=== PATIENT | female | born 1990 | race Caucasian/White ===

== ENCOUNTER 2016-10-18 11:01 | Emergency (ER) | payer OTHER ==
--- NOTE | 2016-10-18 11:16 | EDM.PDOC ---
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 Past medical history: As per history of present illness and as reviewed below otherwise noncontributory. Surgical history: As per history of present illness and as reviewed below otherwise noncontributory. Social history: No reported history of drug or alcohol abuse. Family history: As per history of present illness and as reviewed below otherwise noncontributory. Physical exam: HEENT: Atraumatic, normocehpalic, pupils reactive, negative for conjunctival pallor or scleral icterus, mucous membranes moist, throat clear, neck supple, nontender, trachea midline. Lungs: Clear to auscultation, breath sounds equal bilaterally, chest non tender. Heart: S1S2, regular, negative for clicks, rubs, or JVD. Abdomen: Soft, nondistended, nontender. Negative for masses or hepatossplenmegaly. Negative for costovertebral tenderness. Pelvis: Stable nontender. Genitourinary: Deferred. Rectal: Deferred Extremities: Atraumatic, negative for cords or calf pain. Neurovascular unremarkable. Neuro: Awake, alert, oriented. Cranial nerves II through XII unremarkable. Cerebellum unremarkable. Motor and sensory unremarkable throughout. Exam nonfocal. Diagnostics: [] Therapeutics: [Benadryl 50 IM Zyrtec 10 mg by mouth] Impression: [Reaction to bee sting] Plan: [Home and rest Benadryl every 4 hours as needed by mouth 2 capsules for 50 mg Zyrtec 10 mg by mouth daily 2 weeks Definitive disposition and diagnosis as appropriate pending reevaluation and review of above. Onset: Today, Sudden Duration: Minutes:, Getting Worse Location: Reports: Lower Extremity, Left left foot Pain Score (Numeric/FACES): 5 - Related Data Allergies Allergy/AdvReac Type Severity Reaction Status Date / Time No Known Allergies Allergy Verified 03/09/16 12:48 Home Meds: Home Meds #103/Iron Fumarate/Fa [ ] 1 tab PO DAILY 10/18/16 [ History] Past Medical History - Past Health History Medical/Surgical History: Denies Medical/Surgical History Neurological History: Reports: Migraines Endocrine/Metabolic History: Reports: Other (See Below) Other Endocrine/Metabolic History: Pt states she has had episodes of hypoglycemia in the past. - Infectious Disease History Infectious Disease History: Reports: Chicken Pox Other Infectious Disease History: MONO - Past Surgical History HEENT Surgical History: Reports: Oral Surgery Social & Family History - Family History Family Medical History: Noncontributory - Tobacco Use Smoking Status *Q: Never Smoker Second Hand Smoke Exposure: No - Caffeine Use Caffeine Use: Reports: Soda - Recreational Drug Use Recreational Drug Use: No ED ROS GENERAL - Review of Systems Review Of Systems: ROS reveals no pertinent complaints other than HPI. ED EXAM, ANIMAL BITE - Physical Exam Exam: See Below (See dictation) Course - Vital Signs Last Recorded V/S: Last Vital Signs Temp Pulse 89 10/18/16 11:05 Resp 18 10/18/16 11:05 BP 112/85 10/18/16 11:05 Pulse Ox 98 10/18/16 11:05 - Orders/Labs/Meds Meds: Medications Discontinued Medications Generic Name Dose Route Start Last Admin Trade Name Jacobq PRN Reason Stop Dose Admin Cetirizine HCl 10 mg 10/18/16 11:25 10/18/16 11:36 Zyrtec PO 10/18/16 11:26 10 mg ONETIME ONE Administration Diphenhydramine HCl 50 mg 10/18/16 11:25 10/18/16 11:33 Benadryl IM 10/18/16 11:26 50 mg ONETIME ONE Administration Departure - Departure Time of Disposition: 12:15 Disposition: Home, Self-Care 01 Condition: Good Clinical Impression: Allergic reaction to bee sting - Discharge Information Instructions: Insect Bite, [id number] Forms: ED Department Discharge Additional Instructions: The following information is given to patients seen in the emergency department who are being discharged to home. This information is to outline your options for follow-up care. We provide all patients seen in our emergency department with a follow-up referral. The need for follow-up, as well as the timing and circumstances, are variable depending upon the specifics of your emergency department visit. If you don't have a primary care physician on staff, we will provide you with a referral. We always advise you to contact your personal physician following an emergency department visit to inform them of the circumstance of the visit and for follow-up with them and/or the need for any referrals to a consulting specialist. The emergency department will also refer you to a specialist when appropriate. This referral assures that you have the opportunity for followup care with a specialist. All of these measure are taken in an effort to provide you with optimal care, which includes your followup. Under all circumstances we always encourage you to contact your private physician who remains a resource for coordinating your care. When calling for followup care, please make the office aware that this follow-up is from your recent emergency room visit. If for any reason you are refused follow-up, please contact the [facility] emergency department at and asked to speak to the emergency department charge nurse. Benadryl 50 mg every 4 hours when necessary (2 capsules [id number] medication) Zyrtec 10 mg daily 2 weeks
[2016-10-18] MEDS ORDERED: diphenhydrAMINE 50 MG/ML SDV IM ONE (11:25)
[2016-10-18] MEDS ORDERED: Cetirizine 10 MG Tab PO ONE (11:25)
[2016-10-18 12:51] VITALS: BP 110/70
== END 2016-10-18 12:31 | disposition home or self-care (01) ==
LOC: MW.ED 11:01
DX: T63.441A Toxic effect of venom of bees, accidental (unintentional), initial encounter (principal)
CPT/HCPCS: 96372; 99282; A9270; J1200; 99283

== ENCOUNTER 2016-11-20 12:43 | Emergency (ER) | payer OTHER ==
[2016-11-20] MEDS ORDERED: diphenhydrAMINE 50 MG/ML SDV IM ONE (12:56)
[2016-11-20] MEDS ORDERED: methylPREDNISolone Sodium Succinate 125 MG/2 ML SDV IM ONE (12:56)
[2016-11-20] MEDS ORDERED: EPINEPHrine 1 MG/1 ML Amp SUBCUT ONE (12:57)
--- NOTE | 2016-11-20 13:00 | EDM.PDOC ---
ED HPI GENERAL MEDICAL PROBLEM - General Chief Complaint: Allergic Reaction Stated Complaint: STUNCK BY A BEE Time Seen by Provider: 11/20/16 12:56 - History of Present Illness INITIAL COMMENTS - FREE TEXT/NARRATIVE: HISTORY AND PHYSICAL: History of present illness: Patient 25-year-old white female presents status post bee sting to her right lower extremity she now presents with some tightness in her chest and throat and lightheadedness she denies any other concern Review of systems: As per history of present illness and below otherwise all systems reviewed and negative. Past medical history: As per history of present illness and as reviewed below otherwise noncontributory. Surgical history: As per history of present illness and as reviewed below otherwise noncontributory. Social history: No reported history of drug or alcohol abuse. Family history: As per history of present illness and as reviewed below otherwise noncontributory. Physical exam: HEENT: Atraumatic, normocephalic, pupils reactive, negative for conjunctival pallor or scleral icterus, mucous membranes moist, throat clear, neck supple, nontender, trachea midline. Lungs: Clear to auscultation, breath sounds equal bilaterally, chest nontender. Heart: S1S2, regular, negative for clicks, rubs, or JVD. Abdomen: Soft, nondistended, nontender. Negative for masses or hepatosplenomegaly. Negative for costovertebral tenderness. Pelvis: Stable nontender. Genitourinary: Deferred. Rectal: Deferred. Extremities: Patient has some localized erythema and tenderness of the right ankle where she was stung neurovascular exam CMS is unremarkable Neuro: Awake, alert, oriented. Cranial nerves II through XII unremarkable. Cerebellum unremarkable. Motor and sensory unremarkable throughout. Exam nonfocal. Diagnostics: None Therapeutics epinephrine 0.3 subcutaneous Solu-Medrol 25 mg IM Benadryl 50 mg IM Impression: #1 insect sting with allergic reaction Definitive disposition and diagnosis as appropriate pending reevaluation and review of above. Right Ankle Pain Score (Numeric/FACES): 8 - Related Data Allergies Allergy/AdvReac Type Severity Reaction Status Date / Time bee venom protein (honey bee) Allergy Airway Verified 11/20/16 12:51 Tightness Home Meds: Home Meds #103/Iron Fumarate/Fa [ ] 1 tab PO DAILY 10/18/16 [ History] Past Medical History - Past Health History Medical/Surgical History: Denies Medical/Surgical History Neurological History: Reports: Migraines Endocrine/Metabolic History: Reports: Other (See Below) Other Endocrine/Metabolic History: Pt states she has had episodes of hypoglycemia in the past. - Infectious Disease History Infectious Disease History: Reports: Chicken Pox Other Infectious Disease History: MONO - Past Surgical History HEENT Surgical History: Reports: Oral Surgery Social & Family History - Family History Family Medical History: Noncontributory - Tobacco Use Smoking Status *Q: Never Smoker Second Hand Smoke Exposure: No - Caffeine Use Caffeine Use: Reports: None - Recreational Drug Use Recreational Drug Use: No ED ROS ALLERGIC REACTION - Review of Systems Review Of Systems: ROS reveals no pertinent complaints other than HPI. ED EXAM GENERAL NO PERIP PULSE - Physical Exam Exam: See Below (See dictation) Course - Vital Signs Last Recorded V/S: Last Vital Signs Temp 36.7 C 11/20/16 12:45 Pulse 111 H 11/20/16 12:45 Resp 20 11/20/16 12:45 BP 115/62 11/20/16 12:45 Pulse Ox 97 11/20/16 12:45 - Orders/Labs/Meds Orders: Active Orders 24 hr Category Date Time Status EPINEPHrine [Adrenalin 1:1000] Med 11/20/16 14:00 Once 0.3 mg SUBCUT ONETIME ONE Medication Orders Epinephrine HCl (Adrenalin 1:1000) 0.3 mg SUBCUT ONETIME ONE Stop: 11/20/16 14:01 Meds: Medications Generic Name Dose Route Start Last Admin Trade Name Freq PRN Reason Stop Dose Admin Epinephrine HCl 0.3 mg 11/20/16 14:00 Adrenalin 1:1000 SUBCUT 11/20/16 14:01 ONETIME ONE Discontinued Medications Generic Name Dose Route Start Last Admin Trade Name Freq PRN Reason Stop Dose Admin Diphenhydramine HCl 50 mg 11/20/16 12:56 11/20/16 13:51 Benadryl IM 11/20/16 12:57 50 mg ONETIME ONE Administration Epinephrine HCl 0.3 mg 11/20/16 12:57 Adrenalin 1:1000 SUBCUT 11/20/16 12:58 ONETIME ONE Methylprednisolone Sodium Succinate 125 mg 11/20/16 12:56 11/20/16 13:53 Solu-Medrol IM 11/20/16 12:57 125 mg ONETIME ONE Administration Departure - Departure Time of Disposition: 14:00 Disposition: Home, Self-Care 01 Condition: Good Clinical Impression: Allergic reaction to bee sting - Discharge Information Additional Instructions: The following information is given to patients seen in the emergency department who are being discharged to home. This information is to outline your options for follow-up care. We provide all patients seen in our emergency department with a follow-up referral. The need for follow-up, as well as the timing and circumstances, are variable depending upon the specifics of your emergency department visit. If you don't have a primary care physician on staff, we will provide you with a referral. We always advise you to contact your personal physician following an emergency department visit to inform them of the circumstance of the visit and for follow-up with them and/or the need for any referrals to a consulting specialist. The emergency department will also refer you to a specialist when appropriate. This referral assures that you have the opportunity for followup care with a specialist. All of these measure are taken in an effort to provide you with optimal care, which includes your followup. Under all circumstances we always encourage you to contact your private physician who remains a resource for coordinating your care. When calling for followup care, please make the office aware that this follow-up is from your recent emergency room visit. If for any reason you are refused follow-up, please contact the [facility] emergency department at and asked to speak to the emergency department charge nurse. 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
[2016-11-20] MEDS ORDERED: EPINEPHrine 1 MG/ML SDV SUBCUT ONE (14:00)
[2016-11-21 07:57] VITALS: BP 107/69
== END 2016-11-20 14:34 | disposition home or self-care (01) ==
LOC: MW.ED 12:43
DX: O9A.219 Injury, poisoning and certain other consequences of external causes complicating pregnancy, unspecified trimester (principal); T63.441A Toxic effect of venom of bees, accidental (unintentional), initial encounter
CPT/HCPCS: 96372; 99283; J0171; J1200; J2930

== ENCOUNTER 2017-02-07 11:07 | Emergency (ER) | payer OTHER ==
--- NOTE | 2017-02-07 12:07 | EDM.PDOC ---
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 Past medical history: As per history of present illness and as reviewed below otherwise noncontributory. Surgical history: As per history of present illness and as reviewed below otherwise noncontributory. Social history: No reported history of drug or alcohol abuse. Family history: As per history of present illness and as reviewed below otherwise noncontributory. Physical exam: HEENT: Atraumatic, normocephalic, pupils reactive, negative for conjunctival pallor or scleral icterus, mucous membranes moist, throat clear, neck supple, nontender, trachea midline. Lungs: Clear to auscultation, breath sounds equal bilaterally, chest nontender. Heart: S1S2, regular, negative for clicks, rubs, or JVD. Abdomen: Soft, nondistended, nontender. Negative for masses or hepatosplenomegaly. Negative for costovertebral tenderness. Pelvis: Stable nontender. Genitourinary: Deferred. Rectal: Deferred. Extremities: Atraumatic, negative for cords or calf pain. Neurovascular unremarkable. Neuro: Awake, alert, oriented. Cranial nerves II through XII unremarkable. Cerebellum unremarkable. Motor and sensory unremarkable throughout. Exam nonfocal. Diagnostics: []No imaging required heart tones Therapeutics: []Rest ice Tylenol 48 hours then he may benefit Fluid hydration techniques discussed Macrobid 100 mg by mouth twice a day #14 no refill Impression: UTI []Muscle spasm specifically over infraspinatus 28 weeks with IUP under OB care no OB complaints today FHT 150"s Definitive disposition and diagnosis as appropriate pending reevaluation and review of above. Right Upper Back Pain Score (Numeric/FACES): 7 Right Middle Back Pain Score (Numeric/FACES): 7 - Related Data Allergies Allergy/AdvReac Type Severity Reaction Status Date / Time bee venom protein (honey bee) Allergy Airway Verified 02/07/17 11:42 Tightness Home Meds: Home Meds #103/Iron Fumarate/Fa [ ] 1 tab PO DAILY 10/18/16 [ History] Past Medical History - Past Health History Medical/Surgical History: Denies Medical/Surgical History Neurological History: Reports: Migraines Endocrine/Metabolic History: Reports: Other (See Below) Other Endocrine/Metabolic History: Pt states she has had episodes of hypoglycemia in the past. - Infectious Disease History Infectious Disease History: Reports: Chicken Pox Other Infectious Disease History: MONO - Past Surgical History HEENT Surgical History: Reports: Oral Surgery Social & Family History - Family History Family Medical History: Noncontributory - Tobacco Use Smoking Status *Q: Never Smoker Second Hand Smoke Exposure: No - Caffeine Use Caffeine Use: Reports: None - Recreational Drug Use Recreational Drug Use: No Review of Systems - Review of Systems Review Of Systems: ROS reveals no pertinent complaints other than HPI. ED EXAM, GENERAL - Physical Exam Exam: See Below Course - Vital Signs Last Recorded V/S: Last Vital Signs Temp 36.6 C 02/07/17 11:39 Pulse 105 H 02/07/17 11:39 Resp 18 02/07/17 11:39 BP 102/67 02/07/17 11:39 Pulse Ox 97 02/07/17 11:39 - Orders/Labs/Meds Orders: Active Orders 24 hr Category Date Time Status Heart Tones [ Heart Rate] [RC] Click to Edit Care 02/07/17 11:40 Active CULTURE URINE [RM] Stat Lab 02/07/17 12:55 Uncollected Labs: Laboratory Tests 02/07/17 Range/Units 12:35 Urine Color YELLOW Urine Appearance SLT CLOUDY Urine pH 6.5 (5.0-8.0) Ur Specific [place] 1.020 (1.001-1.035) Urine Protein NEGATIVE (NEGATIVE) mg/dL Urine Glucose (UA) NEGATIVE (NEGATIVE) mg/dL Urine Ketones NEGATIVE (NEGATIVE) mg/dL Urine Occult Blood NEGATIVE (NEGATIVE) Urine Nitrite NEGATIVE (NEGATIVE) Urine Bilirubin NEGATIVE (NEGATIVE) Urine Urobilinogen 0.2 (<2.0) EU/dL Ur Leukocyte Esterase LARGE (NEGATIVE) Urine RBC 0-2 (0-2/HPF) Urine WBC 15-18 (0-5/HPF) Ur Epithelial Cells FEW (NONE-FEW) Urine Bacteria 1+ H (NEGATIVE) Urine Mucus LIGHT (NONE-MOD) Departure - Departure Time of Disposition: 12:56 Disposition: Home, Self-Care 01 Condition: Good Clinical Impression: Muscle spasm, UTI (urinary tract infection) - Discharge Information Referrals: PCP,None [Primary Care Provider] - Forms: ED Department Discharge Additional Instructions: Medication as prescribed Rest ice Tylenol for muscle spasm Fluid hydration techniques as discussed Return if symptoms persist or worsen Follow-up with OB as scheduled sooner as needed The following information is given to patients seen in the emergency department who are being discharged to home. This information is to outline your options for follow-up care. We provide all patients seen in our emergency department with a follow-up referral. The need for follow-up, as well as the timing and circumstances, are variable depending upon the specifics of your emergency department visit. If you don't have a primary care physician on staff, we will provide you with a referral. We always advise you to contact your personal physician following an emergency department visit to inform them of the circumstance of the visit and for follow-up with them and/or the need for any referrals to a consulting specialist. The emergency department will also refer you to a specialist when appropriate. This referral assures that you have the opportunity for follow-up care with a specialist. All of these measure are taken in an effort to provide you with optimal care, which includes your follow-up. Under all circumstances we always encourage you to contact your private physician who remains a resource for coordinating your care. When calling for follow-up care, please make the office aware that this follow-up is from your recent emergency room visit. If for any reason you are refused follow-up, please contact the [facility] emergency department at and asked to speak to the emergency department charge nurse. - My Orders Last 24 Hours: My Active Orders 02/07/17 11:40 Heart Tones [ Heart Rate] [RC] Click to Edit 02/07/17 12:55 CULTURE URINE [RM] Stat - Assessment/Plan Last 24 Hours: My Active Orders 02/07/17 11:40 Heart Tones [ Heart Rate] [RC] Click to Edit 02/07/17 12:55 CULTURE URINE [RM] Stat
[2017-02-07 14:11] VITALS: BP 108/70
== END 2017-02-07 13:12 | disposition home or self-care (01) ==
LOC: MW.ED 11:07
DX: O99.89 Other specified diseases and conditions complicating pregnancy, childbirth and the puerperium (principal); M62.838 Other muscle spasm; O23.43 Unspecified infection of urinary tract in pregnancy, third trimester; Z3A.28 28 weeks gestation of pregnancy
CPT/HCPCS: 81001; 99282; 99283

== ENCOUNTER 2017-04-07 17:33 | Observation (INO) | payer OTHER | END 2017-04-07 18:54 | disposition home or self-care (01) | LOC: MW.OBCHECK 17:33 → MW.OB 17:38 → MW.OBCHECK 18:09 | PROVIDERS: ADMIT Obstetrics & Gynecology; ATTEND Obstetrics & Gynecology | DX: O99.89 Other specified diseases and conditions complicating pregnancy, childbirth and the puerperium (principal) | CPT/HCPCS: 59025; 81003; G0378 ==

== ENCOUNTER 2017-05-04 20:27 | Inpatient (IN) | payer OTHER ==
[2017-05-04] MEDS ORDERED: Methylergonovine 0.2 MG/1 ML Amp IM PRN (22:08)
[2017-05-04] MEDS ORDERED: Misoprostol 200 MCG Tab PO PRN (22:08)
[2017-05-04] MEDS ORDERED: Lidocaine 1% 50 ML MDV INJECT PRN (22:08)
[2017-05-04] MEDS ORDERED: Terbutaline 1 MG/ML SDV SUBCUT PRN (22:08)
[2017-05-04] MEDS ORDERED: Butorphanol 1 MG/ML SDV IVPUSH PRN (22:08)
[2017-05-04] MEDS ORDERED: Water For Irrigation,Sterile 1,000 ML Container IRR PRN (22:08)
[2017-05-04] MEDS ORDERED: Oxytocin/0.9 % Sodium Chloride 30 UNIT/500 ML BAG IV SCH ×2 (22:15→22:30)
[2017-05-04] MEDS ORDERED: Sodium Chloride 0.9% 10 ML Syringe FLUSH PRN (22:23)
[2017-05-04] MEDS ORDERED: Sodium Chloride 0.9% 2.5 ML Syringe FLUSH PRN (22:23)
[2017-05-04] MEDS: Lactated Ringers 1,000 ML IV SCH (22:46)
[2017-05-04] MEDS: Nalbuphine 10 MG/1 ML Vial IVPUSH PRN (23:21)
[2017-05-05] MEDS: Nalbuphine 10 MG/1 ML Vial IVPUSH PRN ×2 (01:20→03:31)
[2017-05-05] MEDS: Lactated Ringers 1,000 ML IV SCH (07:43)
[2017-05-05] MEDS ORDERED: Ropivacaine 0.2% 2 MG/ML 20 ML SDV ONE (07:47)
--- NOTE | 2017-05-05 08:16 | PCM.PREANE ---
Preanesthetic Assessment - Anesthesia/Transfusion/Family Hx Anesthesia History: Prior Anesthesia Without Reaction Family History of Anesthesia Reaction: No Transfusion History: No Prior Transfusion(s) - Review of Systems Other: Reports: None - Physical Assessment Height: 5 ft 4 in Weight: 87.997 kg ASA Class: 2 Mental Status: Alert & Oriented x3 Airway Class: Mallampati = 1 Dentition: Reports: Normal Dentition Thyro-Mental Finger Breadths: 3 Mouth Opening Finger Breadths: 3 ROM/Head Extension: Full - Lab Values: Laboratory Last Values WBC 13.30 K/uL (4.0-11.0) H 05/04/17 22:40 RBC 4.33 M/uL (4.30-5.90) 05/04/17 22:40 Hgb 13.1 g/dL (12.0-16.0) 05/04/17 22:40 Hct 38.4 % (36.0-46.0) 05/04/17 22:40 MCV 88.7 fL (80.0-98.0) 05/04/17 22:40 MCH 30.3 pg (27.0-32.0) 05/04/17 22:40 MCHC 34.1 g/dL (31.0-37.0) 05/04/17 22:40 RDW Std Deviation 46.4 fl (28.0-62.0) 05/04/17 22:40 RDW Coeff of [place] 14 % (11.0-15.0) 05/04/17 22:40 Plt Count 281 K/uL (150-400) 05/04/17 22:40 MPV 10.60 fL (7.40-12.00) 05/04/17 22:40 Nucleated RBC % 0.0 /100WBC 05/04/17 22:40 Nucleated RBCs # 0 K/uL 05/04/17 22:40 Blood Type A POSITIVE 05/04/17 22:40 Antibody Screen NEGATIVE 05/04/17 22:40 - Allergies Allergies/Adverse Reactions: Allergies Allergy/AdvReac Type Severity Reaction Status Date / Time bee venom protein (honey bee) Allergy Airway Verified 02/07/17 11:42 Tightness - Blood Blood Available: Yes Product(s) Available: PRBC - Acknowledgements Anesthesia Type Planned: Epidural Pt an Appropriate Candidate for the Planned Anesthesia: Yes Alternatives and Risks of Anesthesia Discussed w Pt/Guardian: Yes Pt/Guardian Understands and Agrees with Anesthesia Plan: Yes PreAnesthesia Questionnaire - Past Health History Medical/Surgical History: Denies Medical/Surgical History 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 - Infectious Disease History Infectious Disease History: Reports: Chicken Pox Other Infectious Disease History: MONO - Past Surgical History HEENT Surgical History: Reports: Oral Surgery - SUBSTANCE USE Smoking Status *Q: Never Smoker Second Hand Smoke Exposure: No Recreational Drug Use History: No - HOME MEDS Home Medications: Home Meds #103/Iron Fumarate/Fa [ ] 1 tab PO DAILY 10/18/16 [ History] - CURRENT (IN HOUSE) MEDS Current Meds: Current Medications Butorphanol Tartrate (Stadol) 1 mg IVPUSH ASDIRECTED PRN PRN Reason: Pain Carboprost Tromethamine (Hemabate Ds) 250 mcg IM ASDIRECTED PRN PRN Reason: Post Hemorrhage Lactated Ringer's (Ringers, Lactated) 1,000 mls @ 150 mls/hr IV ASDIRECTED WESLEY Last Admin: 05/05/17 07:43 Dose: 500 mls/hr Oxytocin/Sodium Chloride (Oxytocin 30 Unit/500 Ml-Ns) 30 unit in 500 mls @ 999 mls/hr IV ASDIRECTED WESLEY Oxytocin/Sodium Chloride (Oxytocin 30 Unit/500 Ml-Ns) 30 unit in 500 mls @ 2 mls/hr IV TITRATE WESLEY; 2 MUNITS/MIN PRN Reason: Protocol Last Titration: 05/05/17 04:55 Dose: 28 munits/min, 28 mls/hr Lidocaine HCl (Xylocaine 1%) 50 ml INJECT .ONCE PRN PRN Reason: Laceration repair Methylergonovine Maleate (Methergine) 0.2 mg IM ASDIRECTED PRN PRN Reason: Post Hemorrhage Misoprostol (Cytotec) 200 mcg PO .ONCE PRN PRN Reason: Post Hemorrhage Sodium Chloride (Saline Flush) 10 ml FLUSH ASDIRECTED PRN PRN Reason: Keep Vein Open Sodium Chloride (Saline Flush) 2.5 ml FLUSH ASDIRECTED PRN PRN Reason: Keep Vein Open Sterile Water (Sterile Water For Irrigation) 1,000 ml IRR ASDIRECTED PRN PRN Reason: delivery Terbutaline Sulfate (Brethine) 0.25 mg SUBCUT ASDIRECTED PRN PRN Reason: Tacysystole Discontinued Medications Nalbuphine HCl (Nubain) 10 mg IVPUSH ASDIRECTED PRN PRN Reason: Pain (severe 7-10) Last Admin: 05/05/17 03:31 Dose: 10 mg Ropivacaine (Naropin 0.2%) Confirm Administered Dose 20 ml .ROUTE .[facility] Stop: 05/05/17 07:48
[2017-05-05] MEDS ORDERED: Bupivacaine 0.5% 10 ML SDV ONE ×2 (11:48→17:05)
[2017-05-05 14:05] LABS: CHLORIDE,CL 104 mmol/L (98-110); SODIUM,NA 136 mmol/L (136-146)
[2017-05-05] MEDS: Carboprost Tromethamine 250 MCG/1 ML Amp IM PRN ×2 (16:54→17:04)
[2017-05-05] MEDS ORDERED: Tranexamic Acid 1,000 MG in Sodium Chloride 0.9% 50 ML IV ONE (17:15)
[2017-05-05] MEDS ORDERED: Witch Hazel Medicated Pads 40/Jar TOP PRN (17:32)
[2017-05-05] MEDS ORDERED: Ibuprofen 800 MG Tab PO PRN (17:32)
[2017-05-05] MEDS ORDERED: oxyCODONE 5 MG Tab PO PRN (17:32)
[2017-05-05] MEDS ORDERED: ceFAZolin 2 GM in Premix Bag 1 BAG IV ONE (17:32)
[2017-05-05] MEDS ORDERED: Benzocaine/Menthol 20%-0.5% Spray 78 GM Cannister TOP PRN (17:32)
[2017-05-05] MEDS ORDERED: Acetaminophen 500 MG Tab PO PRN (17:32)
[2017-05-05] MEDS ORDERED: Ibuprofen 400 MG Tab PO PRN (17:32)
[2017-05-05] MEDS ORDERED: Bisacodyl 10 MG Supp RECTAL PRN (17:32)
[2017-05-05] MEDS ORDERED: Lanolin 100% Cream 7 GM Tube TOP PRN (17:32)
[2017-05-05] MEDS ORDERED: Docusate Sodium 100 MG Cap PO PRN (17:32)
[2017-05-05] MEDS: Ondansetron 4 MG/2 ML SDV IVPUSH PRN (18:07)
--- NOTE | 2017-05-06 00:22 | OR ---
SURGEON: Suzan Hendricks MD DATE OF PROCEDURE: 05/05/2017 PREOPERATIVE DIAGNOSES: 1. Intrauterine at 40 weeks and 2 days. 2. Spontaneous labor. POSTOPERATIVE DIAGNOSES: 1. Intrauterine at 40 weeks and 2 days. 2. Spontaneous labor. 3. Uterine atony. 4. Delivered. PROCEDURES: 1. Spontaneous vaginal delivery. 2. Repair of perineal laceration. ANESTHESIA: Epidural. ESTIMATED BLOOD LOSS: 600 mL. COMPLICATIONS: None. DISPOSITION: Mother stable in Labor and Delivery room. Baby stable to nursery. FINDINGS: Female , Weight 3580 g, scores 8 and 9 at 1 and 5 minutes respectively. Grossly normal placenta with 3-vessel cord. Second-degree perineal lacerations. hemorrhage secondary to uterine atony. BRIEF HISTORY: Daisy is a 26-year-old, primigravida who presented late last evening at about 9:00 p.m. at 40 weeks and 2 days' gestation in early spontaneous labor. care was uncomplicated. GBS negative. On admission, she was found to be 4 cm dilated, 80% effaced, station -2 with intact membrane and moose every 2 to 4 minutes on the monitor. After several hours of no significant cervical change, oxytocin augmentation was commenced. She made slow progress and received epidural for pain management. Artificial rupture of membranes was performed at this morning when she was 6 cm dilated, and she eventually progressed to full dilatation and was allowed to labor down for about an hour before pushing commenced. heart tracing remained category 1 throughout the intrapartum period. Maximum dose of oxytocin was 30mu/min. She had some elevated blood pressures between 140s xe325c/90s to 100s, but it was asymptomatic, and PIH labs were normal. With pushing, she pushed well and brought the baby's head down to a +4 station and was set up for delivery of modified dorsal lithotomy position. DESCRIPTION OF PROCEDURE: She had a spontaneous vaginal delivery of a live female in direct occipital anterior position, no nuchal cord, clear amniotic fluid at delivery. Anterior and posterior shoulders and the rest of the baby were delivered without difficulty. The baby was vigorous and cried spontaneously at . The baby was delivered onto the maternal abdomen with the nursery nurse attending to the baby. Delayed cord clamping was observed, and the cord was subsequently cut by the maternal grand mother. Cord blood and gas samples were obtained. With delivery of the , oxytocin infusion was converted to titration for active management of third stage of labor. Examination of the perineum revealed a second-degree perineal laceration. Immediate placental separation was not observed, and I commenced repairing the perineal laceration with 2-0 Vicryl suture. While doing this, I noticed brisk bleeding and examined the patient. Again, the placenta had partially half of it was in the vagina, because the patient continued to bled,I gently teased the placenta out.The placenta looked complete and intact.Once the placenta was removed, vigorous uterine massage was performed. The lower uterine segment was found to be boggy and some clots were removed. I continued vigorous bimanual massage of the uterus, and the patient received one dose of Hemabate.With these measures, the uterus firmed up and the bleeding slowed down. I continued and finished up the repair of the laceration, which was hemostatic post repair. The patient continued to trickle, and with further examination, the lower uterine segment continued to be boggy. At this point, Anesthesia was called and the patient had her epidural topped off, and with adequate anesthesia were on board, I was able to explore the uterine cavity, which was empty and more clots were removed and a second does of Hemabate was given. With the second dose of Hemabate, the bleeding did slow down significantly, and the uterus contracted much more. I also went ahead and gave the patient a dose of tranexamic acid 1 g and continued the oxytocin infusion. The patient tolerated the procedure well. Sponge, instrument, and needle counts were correct. MONICA / JUSTIN /[id number] [id number]
[2017-05-06] MEDS: Ondansetron 4 MG/2 ML SDV IVPUSH PRN (00:24)
[2017-05-06] MEDS: Acetaminophen 500 MG Tab PO PRN ×2 (04:03→15:03)
--- NOTE | 2017-05-06 09:02 | PCM48HPAN ---
Post Anesthesia Note - EVALUATION WITHIN 48HRS OF ANESTHETIC Vital Signs in Normal Range: Yes Patient Participated in Evaluation: Yes Respiratory Function Stable: Yes Airway Patent: Yes Cardiovascular Function Stable: Yes Hydration Status Stable: Yes Pain Control Satisfactory: Yes Nausea and Vomiting Control Satisfactory: Yes Mental Status Recovered: Yes
--- NOTE | 2017-05-06 09:43 | PCM.PNPP ---
- General Info Date of Service: 05/06/17 Functional Status: Reports: Pain Controlled, Tolerating Diet, Ambulating, Urinating - Review of Systems General: Denies: Fever, Weakness, Fatigue, Chills HEENT: Denies: Headaches Pulmonary: Denies: Shortness of Breath, Pleuritic Chest Pain, Cough Cardiovascular: Denies: Chest Pain, Palpitations, Dyspnea on Exertion Genitourinary: Denies: Dysuria, Frequency Psychiatric: Reports: Confusion. Denies: Depression, Mood Lability, Anxiety - General Info Date of Service: 05/06/17 - Patient Data Vital Signs - Most Recent: Last Vital Signs Temp 37.1 C 05/06/17 08:00 Pulse 107 H 05/06/17 08:00 Resp 15 05/06/17 08:00 BP 99/57 L 05/06/17 08:00 Pulse Ox 96 05/06/17 08:00 Weight - Most Recent: 194 lb Lab Results - Last 24 Hours: Laboratory Results - last 24 hr 05/05/17 05/05/17 05/05/17 Range/Units 13:17 13:17 16:38 WBC 15.11 H (4.0-11.0) K/uL RBC 4.09 L (4.30-5.90) M/uL Hgb 12.4 (12.0-16.0) g/dL Hct 36.8 (36.0-46.0) % MCV 90.0 (80.0-98.0) fL MCH 30.3 (27.0-32.0) pg MCHC 33.7 (31.0-37.0) g/dL RDW Std Deviation 47.5 (28.0-62.0) fl RDW Coeff of [place] 14 (11.0-15.0) % Plt Count 252 (150-400) K/uL MPV 10.60 (7.40-12.00) fL Nucleated RBC % 0.0 /100WBC Nucleated RBCs # 0 K/uL Cord ABG pH 7.217 (7.18-7.38) Cord ABG Base Excess -7 (-10--2) Cord VBG pH 7.330 (7.25-7.45) Cord VBG Base Excess -6 (-10--2) Sodium 136 (136-146) mmol/L Potassium 3.8 (3.5-5.1) mmol/L Chloride 104 (98-110) mmol/L Carbon Dioxide 22 (21-31) mmol/L BUN 10 (6.0-23.0) mg/dL Creatinine 0.7 (0.6-1.5) mg/dL Est Cr Clr Drug Dosing 106.09 mL/min Estimated GFR (MDRD) > 60.0 ml/min Glucose 102 (60-110) mg/dL Uric Acid 6.3 H (2.1-6.2) mg/dL Calcium 8.6 L (8.8-10.8) mg/dL Total Bilirubin 0.7 (0.1-1.5) mg/dL AST 32 (5-40) IU/L ALT 30 (8-54) IU/L Alkaline Phosphatase 223 H (40-150) Total Protein 6.1 (6.0-8.0) g/dL Albumin 2.9 L (3.5-5.0) g/dL Globulin 3.2 (2.0-3.5) g/dL Albumin/Globulin Ratio 0.9 L (1.3-2.8) 05/05/17 05/06/17 Range/Units 21:00 08:40 WBC (4.0-11.0) K/uL RBC (4.30-5.90) M/uL Hgb 11.4 L 10.0 L (12.0-16.0) g/dL Hct 34.0 L 29.9 L (36.0-46.0) % MCV (80.0-98.0) fL MCH (27.0-32.0) pg MCHC (31.0-37.0) g/dL RDW Std Deviation (28.0-62.0) fl RDW Coeff of [place] (11.0-15.0) % Plt Count (150-400) K/uL MPV (7.40-12.00) fL Nucleated RBC % /100WBC Nucleated RBCs # K/uL Cord ABG pH (7.18-7.38) Cord ABG Base Excess (-10--2) Cord VBG pH (7.25-7.45) Cord VBG Base Excess (-10--2) Sodium (136-146) mmol/L Potassium (3.5-5.1) mmol/L Chloride (98-110) mmol/L Carbon Dioxide (21-31) mmol/L BUN (6.0-23.0) mg/dL Creatinine (0.6-1.5) mg/dL Est Cr Clr Drug Dosing mL/min Estimated GFR (MDRD) ml/min Glucose (60-110) mg/dL Uric Acid (2.1-6.2) mg/dL Calcium (8.8-10.8) mg/dL Total Bilirubin (0.1-1.5) mg/dL AST (5-40) IU/L ALT (8-54) IU/L Alkaline Phosphatase (40-150) Total Protein (6.0-8.0) g/dL Albumin (3.5-5.0) g/dL Globulin (2.0-3.5) g/dL Albumin/Globulin Ratio (1.3-2.8) Med Orders - Current: Current Medications Acetaminophen (Tylenol Extra Strength) 500 mg PO Q4H PRN PRN Reason: Pain Acetaminophen (Tylenol Extra Strength) 1,000 mg PO Q4H PRN PRN Reason: Pain Last Admin: 05/06/17 04:03 Dose: 1,000 mg Benzocaine/Menthol (Dermoplast Pain Relief 20%-0.5% [place]) 78 gm TOP ASDIRECTED PRN PRN Reason: Perineal Comfort Measure Last Admin: 05/05/17 22:03 Dose: 1 canister Bisacodyl (Dulcolax) 10 mg RECTAL .ONCE PRN PRN Reason: Constipation Docusate Sodium (Colace) 100 mg PO BID PRN PRN Reason: Constipation Emollient Ointment (Lansinoh Hpa) 0 gm TOP ASDIRECTED PRN PRN Reason: Sore Nipples Ibuprofen (Motrin) 400 mg PO Q4H PRN PRN Reason: Pain Ibuprofen (Motrin) 800 mg PO Q6H PRN PRN Reason: Pain Ondansetron HCl (Zofran) 4 mg IVPUSH Q6H PRN PRN Reason: Nausea/Vomiting Last Admin: 05/06/17 00:24 Dose: 4 mg Oxycodone HCl (Oxycodone) 5 mg PO Q2H PRN PRN Reason: Pain Witch Leana (Tucks) 1 pad TOP ASDIRECTED PRN PRN Reason: comfort care Last Admin: 05/05/17 22:03 Dose: 1 tub Discontinued Medications Bupivacaine HCl (Sensorcaine-Mpf 0.5%) Confirm Administered Dose 10 ml .ROUTE .STK-MED ONE Stop: 05/05/17 11:49 Bupivacaine HCl (Sensorcaine-Mpf 0.5%) Confirm Administered Dose 20 ml .ROUTE .STK-MED ONE Stop: 05/05/17 17:06 Butorphanol Tartrate (Stadol) 1 mg IVPUSH ASDIRECTED PRN PRN Reason: Pain Carboprost Tromethamine (Hemabate Ds) 250 mcg IM ASDIRECTED PRN PRN Reason: Post Hemorrhage Last Admin: 05/05/17 17:04 Dose: 250 mcg Lactated Ringer's (Ringers, Lactated) 1,000 mls @ 150 mls/hr IV ASDIRECTED WESLEY Last Admin: 05/05/17 07:43 Dose: 500 mls/hr Oxytocin/Sodium Chloride (Oxytocin 30 Unit/500 Ml-Ns) 30 unit in 500 mls @ 999 mls/hr IV ASDIRECTED [place] Last Admin: 05/05/17 16:39 Dose: 999 mls/hr Oxytocin/Sodium Chloride (Oxytocin 30 Unit/500 Ml-Ns) 30 unit in 500 mls @ 2 mls/hr IV TITRATE W[place]; 2 MUNITS/MIN PRN Reason: Protocol Last Titration: 05/05/17 11:56 Dose: 28 munits/min, 28 mls/hr Tranexamic Acid 1,000 mg/ (Sodium Chloride) 60 mls @ 360 mls/hr IV ONETIME ONE Stop: 05/05/17 17:24 Last Admin: 05/05/17 17:10 Dose: 360 mls/hr Cefazolin Sodium/Dextrose 2 gm (/ Premix) 50 mls @ 100 mls/hr IV ONETIME ONE Stop: 05/05/17 18:01 Last Admin: 05/05/17 18:08 Dose: 100 mls/hr Lidocaine HCl (Xylocaine 1%) 50 ml INJECT .ONCE PRN PRN Reason: Laceration repair Methylergonovine Maleate (Methergine) 0.2 mg IM ASDIRECTED PRN PRN Reason: Post Hemorrhage Misoprostol (Cytotec) 200 mcg PO .ONCE PRN PRN Reason: Post Hemorrhage Nalbuphine HCl (Nubain) 10 mg IVPUSH ASDIRECTED PRN PRN Reason: Pain (severe 7-10) Last Admin: 05/05/17 03:31 Dose: 10 mg Ropivacaine (Naropin 0.2%) Confirm Administered Dose 20 ml .ROUTE .[email or web address]-MED ONE Stop: 05/05/17 07:48 Sodium Chloride (Saline Flush) 10 ml FLUSH ASDIRECTED PRN PRN Reason: Keep Vein Open Sodium Chloride (Saline Flush) 2.5 ml FLUSH ASDIRECTED PRN PRN Reason: Keep Vein Open Sterile Water (Sterile Water For Irrigation) 1,000 ml IRR ASDIRECTED PRN PRN Reason: delivery Last Admin: 05/05/17 16:25 Dose: 1,000 ml Terbutaline Sulfate (Brethine) 0.25 mg SUBCUT ASDIRECTED PRN PRN Reason: Tacysystole - Infant Interaction Disposition, : [place] in Room with Family Interaction: Unable to Hold at this Time Feeding: Attempted ; Nursed Fair/Poor, Bottle Fed Infant, Encouraged to Breastfeed Support Person: , Mother - Recovery Exam Fundal Tone: Firm Fundal Level: At Umbilicus Fundal Placement: Midline Lochia Amount: Scant Lochia Color: Rubra/Red Perineum Description: Other (see below) Other Perinuem Description: 2nd degree laceration, repaired Episiotomy/Laceration: Approximated Bladder Status: Voiding Urinary Elimination: Voided - Exam General: Alert, Oriented HEENT: Pupils Equal Neck: Supple Lungs: Clear to Auscultation, Normal Respiratory Effort Cardiovascular: Regular Rate, Regular Rhythm GI/Abdominal Exam: Normal Bowel Sounds Extremities: Non-Tender, Pedal Edema Skin: Warm Neurological: No New Focal Deficit - Problem List & Annotations (1) Vaginal delivery SNOMED Code(s): 513377875 Code(s): O80 - ENCOUNTER FOR FULL-TERM UNCOMPLICATED DELIVERY Status: Acute Current Visit: Yes (2) Uterine atony, , current hospitalization SNOMED Code(s): 8401145 Code(s): O75.89 - OTHER SPECIFIED COMPLICATIONS OF LABOR AND DELIVERY Status: Acute Current Visit: Yes - Problem List Review Problem List Initiated/Reviewed/Updated: Yes - My Orders Last 24 Hours: My Active Orders 05/05/17 17:32 Patient Status [ADT] Routine May Shower [RC] ASDIRECTED Up ad [place] [RC] ASDIRECTED Vital Signs [RC] PER UNIT ROUTINE Acetaminophen [Tylenol Extra Strength] 1,000 mg PO Q4H PRN Acetaminophen [Tylenol Extra Strength] 500 mg PO Q4H PRN Benzocaine/Menthol [Dermoplast Pain Relief 20%-0.5% [place]] 78 gm TOP ASDIRECTED PRN Bisacodyl [Dulcolax] 10 mg RECTAL .ONCE PRN Docusate Sodium [Colace] 100 mg PO BID PRN Ibuprofen [Motrin] 400 mg PO Q4H PRN Ibuprofen [Motrin] 800 mg PO Q6H PRN Lanolin [Lansinoh HPA] See Dose Instructions TOP ASDIRECTED PRN Witch Leana [Tucks] 1 pad TOP ASDIRECTED PRN oxyCODONE 5 mg PO Q2H PRN Assess Lochia [WOMSER] Per Unit Routine Assess Uterine Involution [WOMSER] Per Unit Routine Breast Pump [WOMSER] Per Unit Routine Peripheral IV Discontinue [OM.PC] Routine Resuscitation Status Routine 05/05/17 17:33 Perineal Care [OM.PC] Per Unit Routine 05/05/17 17:47 Ondansetron [Zofran] 4 mg IVPUSH Q6H PRN 05/05/17 Dinner Regular Diet [DIET] 05/07/17 05:11 HEMOGLOBIN/HEMATOCRIT,HH [HEME] AM - Assessment Assessment:: PPD#1 s/p with PPH secondary to uterine atony. Hg 10g/dl, stable and asymptomatic - Plan Plan:: Start Iron tabs, Remove saline lock Ambulate ad parker Aim for discharge in the am
[2017-05-07 09:50] VITALS: BP 113/67
--- NOTE | 2017-05-07 10:06 | PCM.PNPP ---
- General Info Date of Service: 05/07/17 Admission Dx/Problem (Free Text): 26 yo P1 s/p Vaginal delivery with PPH , stable , PPD 2 Functional Status: Reports: Pain Controlled, Tolerating Diet, Ambulating, Urinating - Review of Systems General: Reports: No Symptoms HEENT: Reports: No Symptoms Pulmonary: Reports: No Symptoms Cardiovascular: Reports: No Symptoms Gastrointestinal: Reports: No Symptoms Genitourinary: Reports: No Symptoms Musculoskeletal: Reports: No Symptoms Skin: Reports: No Symptoms Neurological: Reports: No Symptoms Psychiatric: Reports: No Symptoms - General Info Date of Service: 05/07/17 - Patient Data Vital Signs - Most Recent: Last Vital Signs Temp 36.2 C 05/07/17 09:00 Pulse 105 H 05/07/17 09:00 Resp 16 05/07/17 09:00 BP 113/67 05/07/17 09:00 Pulse Ox 98 05/07/17 09:00 Weight - Most Recent: 87.997 kg Lab Results - Last 24 Hours: Laboratory Results - last 24 hr 05/07/17 Range/Units 07:06 Hgb 9.1 L (12.0-16.0) g/dL Hct 27.8 L (36.0-46.0) % Med Orders - Current: Current Medications Acetaminophen (Tylenol Extra Strength) 500 mg PO Q4H PRN PRN Reason: Pain Acetaminophen (Tylenol Extra Strength) 1,000 mg PO Q4H PRN PRN Reason: Pain Last Admin: 05/06/17 15:03 Dose: 1,000 mg Benzocaine/Menthol (Dermoplast Pain Relief 20%-0.5% [place]) 78 gm TOP ASDIRECTED PRN PRN Reason: Perineal Comfort Measure Last Admin: 05/05/17 22:03 Dose: 1 canister Bisacodyl (Dulcolax) 10 mg RECTAL .ONCE PRN PRN Reason: Constipation Docusate Sodium (Colace) 100 mg PO BID PRN PRN Reason: Constipation Emollient Ointment (Lansinoh Hpa) 0 gm TOP ASDIRECTED PRN PRN Reason: Sore Nipples Last Admin: 05/06/17 10:38 Dose: 1 tube Ibuprofen (Motrin) 400 mg PO Q4H PRN PRN Reason: Pain Ibuprofen (Motrin) 800 mg PO Q6H PRN PRN Reason: Pain Ondansetron HCl (Zofran) 4 mg IVPUSH Q6H PRN PRN Reason: Nausea/Vomiting Last Admin: 05/06/17 00:24 Dose: 4 mg Oxycodone HCl (Oxycodone) 5 mg PO Q2H PRN PRN Reason: Pain Witch Leana (Tucks) 1 pad TOP ASDIRECTED PRN PRN Reason: comfort care Last Admin: 05/05/17 22:03 Dose: 1 tub Discontinued Medications Bupivacaine HCl (Sensorcaine-Mpf 0.5%) Confirm Administered Dose 10 ml .ROUTE .STK-MED ONE Stop: 05/05/17 11:49 Bupivacaine HCl (Sensorcaine-Mpf 0.5%) Confirm Administered Dose 20 ml .ROUTE .STK-MED ONE Stop: 05/05/17 17:06 Butorphanol Tartrate (Stadol) 1 mg IVPUSH ASDIRECTED PRN PRN Reason: Pain Carboprost Tromethamine (Hemabate Ds) 250 mcg IM ASDIRECTED PRN PRN Reason: Post Hemorrhage Last Admin: 05/05/17 17:04 Dose: 250 mcg Lactated Ringer's (Ringers, Lactated) 1,000 mls @ 150 mls/hr IV ASDIRECTED [place] Last Admin: 05/05/17 07:43 Dose: 500 mls/hr Oxytocin/Sodium Chloride (Oxytocin 30 Unit/500 Ml-Ns) 30 unit in 500 mls @ 999 mls/hr IV ASDIRECTED [place] Last Admin: 05/05/17 16:39 Dose: 999 mls/hr Oxytocin/Sodium Chloride (Oxytocin 30 Unit/500 Ml-Ns) 30 unit in 500 mls @ 2 mls/hr IV TITRATE [place]; 2 MUNITS/MIN PRN Reason: Protocol Last Titration: 05/05/17 11:56 Dose: 28 munits/min, 28 mls/hr Tranexamic Acid 1,000 mg/ (Sodium Chloride) 60 mls @ 360 mls/hr IV ONETIME ONE Stop: 05/05/17 17:24 Last Admin: 05/05/17 17:10 Dose: 360 mls/hr Cefazolin Sodium/Dextrose 2 gm (/ Premix) 50 mls @ 100 mls/hr IV ONETIME ONE Stop: 02/08/18 18:01 Last Admin: 05/05/17 18:08 Dose: 100 mls/hr Lidocaine HCl (Xylocaine 1%) 50 ml INJECT .ONCE PRN PRN Reason: Laceration repair Methylergonovine Maleate (Methergine) 0.2 mg IM ASDIRECTED PRN PRN Reason: Post Hemorrhage Misoprostol (Cytotec) 200 mcg PO .ONCE PRN PRN Reason: Post Hemorrhage Nalbuphine HCl (Nubain) 10 mg IVPUSH ASDIRECTED PRN PRN Reason: Pain (severe 7-10) Last Admin: 05/05/17 03:31 Dose: 10 mg Ropivacaine (Naropin 0.2%) Confirm Administered Dose 20 ml .ROUTE .[facility] ONE Stop: 05/05/17 07:48 Sodium Chloride (Saline Flush) 10 ml FLUSH ASDIRECTED PRN PRN Reason: Keep Vein Open Sodium Chloride (Saline Flush) 2.5 ml FLUSH ASDIRECTED PRN PRN Reason: Keep Vein Open Sterile Water (Sterile Water For Irrigation) 1,000 ml IRR ASDIRECTED PRN PRN Reason: delivery Last Admin: 05/05/17 16:25 Dose: 1,000 ml Terbutaline Sulfate (Brethine) 0.25 mg SUBCUT ASDIRECTED PRN PRN Reason: Tacysystole - Infant Interaction Disposition, : [place] in Room with Family Infant Interaction: Unable to Hold Infant at this Time Infant Feeding: Attempted ; Nursed Fair/Poor, Bottle Fed , Encouraged to Breastfeed Support Person: , Mother - Recovery Exam Fundal Tone: Firm Fundal Level: 1 Fingerbreadths Below Umbilicus Fundal Placement: Midline Lochia Amount: Scant Lochia Color: Rubra/Red Perineum Description: Edematous Other Perinuem Description: 2nd degree laceration, repaired Episiotomy/Laceration: Approximated Bladder Status: Voiding Urinary Elimination: Voided - Exam General: Alert, Oriented HEENT: Pupils Equal, Pupils Reactive Neck: Supple Lungs: Clear to Auscultation Cardiovascular: Regular Rate, Regular Rhythm GI/Abdominal Exam: Normal Bowel Sounds Extremities: Normal Inspection Neurological: No New Focal Deficit Psy/Mental Status: Alert - Problem List & Annotations (1) Uterine atony, , current hospitalization SNOMED Code(s): 1339255 Code(s): O75.89 - OTHER SPECIFIED COMPLICATIONS OF LABOR AND DELIVERY Status: Acute Current Visit: Yes (2) Vaginal delivery SNOMED Code(s): 503125828 Code(s): O80 - ENCOUNTER FOR FULL-TERM UNCOMPLICATED DELIVERY Status: Acute Current Visit: Yes - Problem List Review Problem List Initiated/Reviewed/Updated: Yes - Assessment Assessment:: PPD#2 s/p with PPH secondary to uterine atony. Hg 10g/dl, stable and asymptomatic - Plan Plan:: Discharge home today with bleeding and anemia precautions Pain control as needed
== END 2017-05-07 12:20 | disposition home or self-care (01) | DRG 774 ==
LOC: MW.OBCHECK 20:27 → MW.OB 20:29 → MW.OBCHECK 22:08 → MW.OB 22:08 → OBSVTOIN 05-05 16:38 → MW.OB 05-05 23:38
PROVIDERS: ADMIT Obstetrics & Gynecology; ATTEND Obstetrics & Gynecology
PROC: 10E0XZZ Delivery of Products of Conception, External Approach (ICD-10-PCS; principal; 2017-05-05)
PROC: 0KQM0ZZ Repair Perineum Muscle, Open Approach (ICD-10-PCS; 2017-05-05)
PROC: 10907ZC Drainage of Amniotic Fluid, Therapeutic from Products of Conception, Via Natural or Artificial Opening (ICD-10-PCS; 2017-05-05)
DX: O70.1 Second degree perineal laceration during delivery (principal); O72.1 Other immediate postpartum hemorrhage; Z37.0 Single live birth; Z3A.40 40 weeks gestation of pregnancy
CPT/HCPCS: 36415; 51702; 59025; 59409; 80053; 82803; 84550; 85014; 85018; 85027; 86850; 86900; 86901; A9270-GY; J0690; J2300; J2405; J2590; J7050; J7120